=== PATIENT | female | born 1975 | race African-American/Black ===

== ENCOUNTER 2024-08-22 03:26 | Emergency (ER) | payer OTHER, MEDICAID ==
[~2024-08-22] VITALS: Ht 167.6 cm; Wt 81.6 kg
[2024-08-22] MEDS: cloNIDine HCL 0.1 MG TAB PO ONE (03:47)
--- NOTE | 2024-08-22 04:14 | ED.PDOC ---
History of Present Illness HPI Comments 48-year-old female came to ER for eye problems. Patient has history of hypertension and diabetes and has poor compliance to her medications. States for the past week she has been having bilateral eye pain, right worse than the left, with blurring of vision of the right. Patient states she is legally blind despite still being able to see. Upon arrival, blood pressure is 218/125 mmHg Chief Complaint: Eye Problem Time Seen by MD: 04:14 Reviewed Notes: Nurses Notes Allergies: Coded Allergies: NO KNOWN ALLERGIES (Unverified , 08/22/24) Information Source: Patient Mode of Arrival: Ambulatory Severity: Moderate Timing: Days Duration: Intermittent Prehospital treatment: None Past Medical History PAST MEDICAL HISTORY: DM, HTN Surgical History: Denies all surgeries BOTTLE CLEANER History: Denies all BOTTLE CLEANER Hx Family History Family History: Reviewed,noncontributory to illness Social History Smoker: Cigarettes Alcohol: Denies ETOH Use Drugs: Marijuana, Methamphetamine Lives In: Home Constitutional: denies: chills, diaphoresis, fatigue, fever, malaise, sweats, weakness, others EENTM: reports: blurred vision, eye pain; denies: double vision, ear bleeding, ear discharge, ear drainage, ear pain, ear ringing, eye redness, hearing loss, mouth pain, mouth swelling, nasal discharge, nose bleeding, nose congestion, nose pain, photophobia, tearing, throat pain, throat swelling, voice changes, others Respiratory: denies: cough, hemoptysis, orthopnea, SOB at rest, shortness of breath, SOB with excertion, stridor, wheezing, others Cardiovascular: denies: chest pain, dizzy spells, diaphoresis, Dyspnea on exertion, edema, irregular heart beat, left arm pain, lightheadedness, palpitations, PND, syncope, others Gastrointestinal: denies: abdomen distended, abdominal pain, blood streaked bowels, constipated, diarrhea, dysphagia, difficulty swallowing, hematemesis, melena, nausea, poor appetite, poor fluid intake, rectal bleeding, rectal pain, vomiting, others Genitourinary: denies: abnormal vagina bleeding, burning, dyspareunia, dysuria, flank pain, frequency, hematuria, incontinence, pain, , vagina discharge, urgency, others Neurological: denies: dizziness, fainting, headache, left sided numbness, left sided weakness, numbness, paresthesia, pre-existing deficit, right sided numbness, right sided weakness, seizure, speech problems, tingling, tremors, weakness, others Musculoskeletal: denies: back pain, gout, joint pain, joint swelling, muscle pain, muscle stiffness, neck pain, others Integumetry: denies: bruises, change in color, change in hair/nails, dryness, laceration, lesions, lumps, rash, wounds, others Allergic/Immunocompromised: denies: Difficulty Healing, Frequent Infections, Hives, Itching, others Hematologic/Lymphatic: denies: anemia, blood clots, easy bleeding, easy bruising, swollen glands, others Endocrine: denies: excessive hunger, excessive sweating, excessive thirst, excessive urination, flushing, intolerance to cold, intolerance to heat, unexplained weight gain, unexplained weight loss, others Psychiatric: denies: anxiety, bipolar disorder, depression, hopeless, panic disorder, schizophrenia, sleepless, suicidal, others Physical Exam General Appearance: No Apparent Distress, Normal HEENT: Normal ENT Inspection, Pharynx Normal, TMs Normal Neck: Full Range of Motion, Non-Tender, Normal, Normal Inspection Respiratory: Chest Non-Tender, Lungs Clear, No Accessory Muscle Use, No Respiratory Distress, Normal Breath Sounds Cardiovascular: No Edema, No JVD, No Murmur, No Gallop, Normal Peripheral Pulses, Regular Rate/Rhythm Breast Exam: Deferred Gastrointestinal: No Organomegaly, Non Tender, No Pulsatile Mass, Normal Bowel Sounds, Soft Genitalia: Deferred Pelvic: Deferred Rectal: Deferred Extremities: No calf tenderness, Normal capillary refill, Normal inspection, Normal range of motion, Non-tender, No pedal edema Musculoskeletal : Apperance: Normal Neurologic: Alert, radiotelegrapher II-XII nml as Tested, No Motor Deficits, Normal Affect, Normal Mood, No Sensory Deficits Cerebellar Function: Normal Reflexes: Normal Skin: Dry, Normal Color, Warm Lymphatic: No Adenopathy Was a procedure done? Was a procedure done?: No Differential Dx Considerations may include: Hypertensive urgency, diabetes, diabetic retinopathy, electrolyte imbalance X-Ray, Labs, Meds, VS Vital Signs Date Time Temp Pulse Resp B/P (MAP) Pulse Ox O2 Delivery O2 Flow Rate FiO2 08/22/24 03:47 218/125 Current Medications Medications (Trade) Dose Ordered Sig/Moira Route Start Time Stop Time Status Last Admin Clonidine HCl (Catapres Tablet) 0.2 mg ONCE ONCE PO 08/22/24 03:45 08/22/24 03:46 DC 08/22/24 03:47 Time of 1ST Reevaluation: 04:09 Reevaluation 1ST: Unchanged Patient Education/Counseling: Diagnosis, Treatment Family Education/Counseling: No Family Present Critical Care Note Critical Care Time?: Yes (35 min-critical care time only) Critical care comment: Hypertensive urgency Stability Stability form required: No Heart Score Heart Score: Heart Score Response (Comments) Value History N/A 0 EKG N/A 0 Age N/A 0 Risk Factors N/A 0 Troponin N/A 0 Total 0 I personally scribed for FROYLAN GARCIA MD ([email or web address]) on 08/22/24 at 04:14. Electronically submitted by Ryan Parra ([email or web address]). FROYLAN GARCIA MD Aug 22, 2024 04:14
[2024-08-22 06:16] VITALS: BP 112/82; PULSE 95; RESP 16; TEMP 97.8; O2SAT 99
[2024-08-22] MEDS: traMADol HCL 50 MG TAB PO ONE (06:16)
--- NOTE | 2024-08-25 13:58 | ECG ---
[facility] Test Date: 2024-08-22 Test Time: 03:56:04 Pat Name: SHIVAM VILLATORO Department: ER Room: Gender: F Compliance Technician: CHRISTOS : 1975 Requested By: FROYLAN GARCIA Order Number: [id number] Reading MD: Ignacio Howard Measurements Intervals [place] Rate: 102 P: 65 TN: 125 QRS: -30 QRSD: 75 T: 66 QT: 336 QTc: 438 Interpretive Statements Sinus tachycardia Probable left atrial enlargement Left axis deviation Anteroseptal infarct, age indeterminate Electronically Signed On 08-26-2024 10:14:43 PST by Ignacio Howard Please click the below link to view image of tracing.
== END 2024-08-22 06:17 | disposition home or self-care (01) ==
LOC: ER 03:26
DX: H57.13 Ocular pain, bilateral (principal); H53.8 Other visual disturbances; I10 Essential (primary) hypertension; E11.9 Type 2 diabetes mellitus without complications; F17.210 Nicotine dependence, cigarettes, uncomplicated
CPT/HCPCS: 93005